=== PATIENT | female | born 1940 | race Caucasian/White ===

== ENCOUNTER 2020-04-11 14:38 | Emergency (ER) | payer MEDICARE ==
[~2020-04-11] VITALS: Ht 165.1 cm; Wt 73.0 kg
--- NOTE | 2020-04-11 15:00 | PHYS DOC ---
Past History Past Medical History: Diabetes, Hypertension Past Surgical History: Tonsillectomy Alcohol Use: None Adult General Chief Complaint Chief Complaint: MECHANICAL FALL HPI HPI Patient is a 79-year-old female presents status post mechanical fall. Patient reports suffering a mechanical fall while walking up her driveway. States she tripped on her shoelace and noticed she was falling down and so, she positioned her body to land in the grass, not the hard paved driveway. Patient subsequently fell towards her right landing on her outstretched right wrist, then hit her left wrist and knees and subsequently hit her nose suffering a small abrasion. Patient reports mild pain in her nose and right wrist only. She did not lose consciousness, no headaches nausea or vomiting since episode, she is ambulatory since this happened without any other concerning motor, sensory or neurologic abnormalities. She is not on any anticoagulants at this time Review of Systems Review of Systems Fourteen body systems of review of systems have been reviewed. See HPI for pertinent positives and negative responses, other jones all other systems are negative, non-pertinent or non-contributorya Allergies Allergies Allergies Coded Allergies Type Severity Reaction Last Updated Verified No Known Drug Allergies 04/11/20 No Physical Exam Physical Exam Constitutional: Pt is oriented to person, place, and time. Pt appears well- developed and well-nourished. HENT: Head: Normocephalic and atraumatic. Mouth/Throat: Oropharynx is clear and moist. No hematomas or lacerations or abrasions to face or scalp OP clear, no blood, no malocclusion, dentition intact Nares clear, no nasal septal hematoma, deviated septum which is chronic per patient, mild soft tissue swelling at bridge of nose without any palpable abnormalities External ears unremarkable, negative tejeda sign Midface stable Eyes: Conjunctivae and EOM are normal. Pupils are equal, round, and reactive to light. Neck: C-spine midline nontender, no step-offs Cardiovascular: Normal rate, regular rhythm and normal heart sounds. Pulmonary/Chest: Effort normal and breath sounds normal. No respiratory distress. No wheezes. CTA bilaterally Abdominal: Soft. Bowel sounds are normal. Pt exhibits no distension. There is no tenderness. Musculoskeletal: No bony tenderness to extremities, no deformities, full ROM extremities Chest wall stable Pelvis stable and non-tender No vertebral TTP and spine without stepoffs Neurological: Pt is alert and oriented to person, place, and time. Moving all extremities willfully, able to wiggle all fingers and toes Alert and oriented x 3 Sensation grossly intact Tenderness to palpation of right scaphoid area. Otherwise median ulnar and radial nerves of right upper extremity intact with cap refill less than 3 seconds, no changes in motor or sensory function versus baseline Skin: Skin is warm and dry. No abrasions, no lacerations Psychiatric: Behavior is appropriate for situation Nursing note and vitals reviewed. Current Patient Data Vital Signs Vital Signs Date Time Temp Pulse Resp B/P (MAP) Pulse Ox O2 Delivery O2 Flow Rate FiO2 04/11/20 14:45 98.3 100 20 156/85 (108) 97 EKG EKG [] Radiology/Procedures Radiology/Procedures [] Heart Score Risk Factors: Risk Factors: DM, Current or recent (<one month) smoker, HTN, HLP, family history of CAD, obesity. Risk Scores: Risk Factors: DM, Current or recent (<one month) smoker, HTN, HLP, family history of CAD, obesity. Course & Med Decision Making Course & Med Decision Making Pertinent Labs and Imaging studies reviewed. (See chart for details) Discussed most likely diagnosis of contusion to right wrist and abrasion to nose. Patient observed in our ER for greater than 90 minutes without any overt changes in mentation. I have no fear for her ability to go home at this time. NEXUS cervical spine negative, I discussed little utility in CT head, I did disclose without this I could not definitively rule out brain bleed but at this time given history and physical examination findings and patient without anticoagulant use and no loss of consciousness or other concerning findings, joint decision to defer Patient was advised and educated on importance of close outpatient follow-up. I advised them to call primary care physician as soon as possible to discuss following up in outpatient setting after ER departure for repeat examination and evaluation. Strict return precautions were discussed at length with good understanding by patient who is able to restate plan and concerning signs or symptoms that should prompt immediate medical attention. All questions and concerns addressed prior to ER departure Dragon Disclaimer Dragon Disclaimer This electronic medical record was generated, in whole or in part, using a voice recognition dictation system. Departure Departure: Impression: Primary Impression: Contusion of right wrist Additional Impression: Nose abrasion Disposition: 01 DC HOME SELF CARE/HOMELESS Condition: STABLE Referrals: ERLINDA PAREDES MD (PCP) Patient Instructions: Abrasions, Contusion Problem Qualifiers INDER JANE DO Apr 11, 2020 15:00
[2020-04-11] MEDS ORDERED: ACETAMINOPHEN 325 MG TABLET PO ONE (15:15)
--- NOTE | 2020-04-11 16:28 | RAD ---
EXAM: NASAL BONES 3+V, WRIST 3V RIGHT 04/11/2020 3:08 PM CLINICAL INDICATION:Fall to nose, fell on outstretched hand COMPARISON:None TECHNIQUE:3 views of the nasal bones, 3 views of the right wrist FINDINGS: Nasal bones: No displaced nasal bone fracture. Paranasal sinuses and mastoid air cells are clear.. Orbits appear intact. Temporomandibular joints are normally aligned. Right wrist: Transverse lucency through the distal radius on oblique view could represent a nondisplaced fracture. Otherwise, no fracture. Alignment is normal. Severe joint space narrowing and subchondral sclerosis at the first CMC joint. Chondrocalcinosis is noted. There are vascular calcifications. IMPRESSION: 1. No acute osseous abnormality of the nasal bones. 2. Possible nondisplaced distal radial fracture. Electronically signed by: Radha Franco MD (04/11/2020 4:25 PM) [id number]
[2020-04-11 16:45] VITALS: BP 142/68
== END 2020-04-11 16:50 | disposition home or self-care (01) ==
LOC: ER 14:38
DX: S60.211A Contusion of right wrist, initial encounter (principal); S00.31XA Abrasion of nose, initial encounter; E11.9 Type 2 diabetes mellitus without complications; I10 Essential (primary) hypertension; W18.09XA Striking against other object with subsequent fall, initial encounter; Y93.01 Activity, walking, marching and hiking; Y92.89 Other specified places as the place of occurrence of the external cause; Y99.8 Other external cause status
CPT/HCPCS: 29125; 70160; 73110; 99284

== ENCOUNTER → 2020-04-13 | Outpatient (CLI) | payer MEDICARE ==
[2020-04-11 16:45] VITALS: BP 142/68
--- NOTE | 2020-04-13 17:24 | RAD ---
Left knee 4 views. HISTORY: Pain 4 views were taken of the left knee. There is mild chondrocalcinosis. There is no fracture or joint effusion or other acute osseous abnormality. IMPRESSION: 1. Mild chondrocalcinosis left knee. 2. No fracture or joint effusion or other acute osseous abnormality. Electronically signed by: Jesus Chavarria MD (04/13/2020 5:21 PM) [id number]
--- NOTE | 2020-04-13 17:26 | RAD ---
Right hand 3 views. HISTORY: Pain right hand 3 views were taken of the right hand. The hand and wrist is in a splint which obscures visualization. There is arthritis at the first metacarpal phalangeal joint with joint space narrowing and spurring. There is extensive vascular calcification. There is mild arthritis at the interphalangeal joint of the thumb. There is are not optimally visualized as they're flexed. An acute fracture is not identified. Soft tissue swelling dorsally. There is mild arthritis at the third metacarpal phalangeal joint with spurring. IMPRESSION: 1. Soft tissue swelling. 2. 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 3. Some limitation in evaluation of the fingers. 4. No definite fracture. Electronically signed by: Jesus Chavarria MD (04/13/2020 5:23 PM) [id number]
== END ==
LOC: RAD 16:41
PROVIDERS: ATTEND Specialist
DX: S60.211A Contusion of right wrist, initial encounter (principal); M19.031 Primary osteoarthritis, right wrist; M11.262 Other chondrocalcinosis, left knee; X58.XXXA Exposure to other specified factors, initial encounter; Y93.89 Activity, other specified; Y92.89 Other specified places as the place of occurrence of the external cause; Y99.8 Other external cause status
CPT/HCPCS: 73130; 73564

== ENCOUNTER → 2020-05-04 | Outpatient (CLI) | payer MEDICARE ==
[2020-04-11 16:45] VITALS: BP 142/68
--- NOTE | 2020-05-04 13:59 | RAD ---
PROCEDURE: XR FOREARM_RIGHT 2 VIEWS STUDY DATE: 05/04/2020 CLINICAL INDICATION / HISTORY: Reason: NON DISPLACED FRACTURE DISTAL RADIUS / Spl. Instructions: / H istory: . TECHNIQUE: Right forearm 2 views. AP and lateral views. COMPARISON: Right wrist x-rays of 04/17/2020 FINDINGS: Right forearm has been placed in a cast. Bones are osteopenic. Alignment is anatomic. The c ast obscures osseous detail at the wrist but no new fracture or displacement is identified. The more proximal right forearm shows no acute osseous abnormality. Soft tissues are unremarkable. IMPRESSION: No acute bony abnormality status post cast placement. Distal right radial fracture is less well seen due to overlap of cast material. Proximal right forearm unremarkable. Electronically signed by: Gloria Bower MD (05/04/2020 1:57 PM) [id number]
== END ==
LOC: DXRAD 10:52
PROVIDERS: ATTEND Specialist
DX: S52.324A Nondisplaced transverse fracture of shaft of right radius, initial encounter for closed fracture (principal); M85.831 Other specified disorders of bone density and structure, right forearm; X58.XXXA Exposure to other specified factors, initial encounter; Y93.89 Activity, other specified; Y92.89 Other specified places as the place of occurrence of the external cause; Y99.8 Other external cause status
CPT/HCPCS: 73090

== ENCOUNTER → 2020-08-06 | Outpatient (CLI) | payer MEDICARE ==
--- NOTE | 2020-08-06 15:38 | RAD ---
US EXTREM UPPER ARTERIAL UNILAT History: Reason: L HAND 2ND FINGER COLD / Spl. Instructions: / History: Comparison: None. COMPARISON: None available TECHNIQUE: Sonographic and Doppler evaluation of the left upper extremity arterial system. FINDINGS: Triphasic or biphasic waveform throughout the left upper extremity. No significant velocity elevation . No stenosis. Moderate atheromatous plaque. IMPRESSION: 1. No arterial stenosis or occlusion within the upper extremity. 2. Moderate atheromatous plaque. Electronically signed by: Nils Lopez DO (08/06/2020 3:36 PM) [id number]
== END ==
LOC: US 10:18
PROVIDERS: ATTEND Specialist
DX: I70.202 Unspecified atherosclerosis of native arteries of extremities, left leg (principal)
CPT/HCPCS: 93931

== ENCOUNTER 2021-05-21 13:01 | Emergency (ER) | payer MEDICARE ==
[~2021-05-21] VITALS: Ht 165.1 cm; Wt 73.0 kg
--- NOTE | 2021-05-21 13:28 | EKG ---
[address] [address] Test Date: 2021-05-21 Test Time: 13:08:57 Pat Name: EBONY TELLEZ Department: Room: Gender: F Signals Officer: DOMI : 1940 Requested By: FELI PORTER Order Number: [id number] Reading MD: Eleazar Morris Measurements Intervals [place] Rate: 96 P: 35 ME: 220 QRS: -51 QRSD: 116 T: 87 QT: 338 QTc: 433 Interpretive Statements SINUS RHYTHM PROLONGED ME INTERVAL ABNORMAL LEFT AXIS DEVIATION R-S TRANSITION ZONE IN V LEADS DISPLACED TO THE LEFT LEFT ANTERIOR FASCICULAR BLOCK LVH WITH REPOLARIZATION ABNORMALITY Electronically Signed On 05-22-2021 15:17:15 [employer] BASTER by Eleazar Morris
--- NOTE | 2021-05-21 13:33 | PHYS DOC ---
Past History Past Medical History: Diabetes, Hypertension Past Surgical History: Tonsillectomy Alcohol Use: None General Adult EDM: Chief Complaint: ALTERED MENTAL STATUS HPI: HPI: 80-year-old female presents with concern for strokelike symptoms. The patient had an episode of upper and lower lip swelling and numbness yesterday but this went away. She made an appoint with her primary physician for Monday. Today, the patient had a period where she had slurred speech and was unable to clearly articulate what she wanted to say. She was talking to a friend of hers and it was obvious to both of them that she was having difficulty. She tells me that this lasted for about 30 minutes. She now has no symptoms of any kind. She denies any change in sensation or strength. She is able to walk without any difficulty. She came in for evaluation out of an abundance of caution. Review of Systems: Review of Systems: Constitutional: Denies fever or chills Eyes: Denies change in visual acuity HENT: Denies nasal congestion or sore throat Respiratory: Denies cough or shortness of breath Cardiovascular: Denies chest pain or edema GI: Denies abdominal pain, nausea, vomiting, bloody stools or diarrhea : Denies dysuria Musculoskeletal: Denies back pain or joint pain Integument: Denies rash Neurologic: Slurred speech. Denies headache, focal weakness or sensory changes Endocrine: Denies polyuria or polydipsia Lymphatic: Denies swollen glands Psychiatric: Denies depression or anxiety Allergies: Allergies: Allergies Coded Allergies Type Severity Reaction Last Updated Verified No Known Drug Allergies 04/11/20 No Physical Exam: PE: Constitutional: Well developed, well nourished, no acute distress, non-toxic appearance. [] HENT: Normocephalic, atraumatic, bilateral external ears normal, oropharynx moist, no oral exudates, nose normal. [] Eyes: PERRLA, EOMI, conjunctiva normal, no discharge. [] Neck: Normal range of motion, no tenderness, supple, no stridor. [] Cardiovascular: Heart rate regular rhythm, no murmur [] Lungs & Thorax: Bilateral breath sounds clear to auscultation [] Abdomen: Bowel sounds normal, soft, no tenderness, no masses, no pulsatile masses. [] Skin: Warm, dry, no erythema, no rash. [] Back: No tenderness, no CVA tenderness. [] Extremities: No tenderness, no cyanosis, no clubbing, ROM intact, no edema. [] Neurologic: Alert and oriented X 3, normal motor function, normal sensory function, no focal deficits noted. [] Psychologic: Affect normal, judgement normal, mood normal. [] Current Patient Data: Labs: Laboratory Tests Test 05/21/21 13:15 Glucose (Fingerstick) 202 mg/dL (70-99) H EKG: EKG: Sinus rhythm, rate 96, leftward axis, no ST elevation or depression. [] Radiology/Procedures: Radiology/Procedures: [] Heart Score: C/O Chest Pain: N/A Risk Factors: Risk Factors: DM, Current or recent (<one month) smoker, HTN, HLP, family history of CAD, obesity. Risk Scores: Score 0 - 3: 2.5% MACE over next 6 weeks - Discharge Home Score 4 - 6: 20.3% MACE over next 6 weeks - Admit for Clinical Observation Score 7 - 10: 72.7% MACE over next 6 weeks - Early Invasive Strategies Course & Med Decision Making: Course & Med Decision Making Pertinent Labs and Imaging studies reviewed. (See chart for details) The patient's EKG is negative for acute findings. Her head CT is negative for acute findings. Her labs are unremarkable. Chest x-ray is unremarkable. Urinalysis is negative for infection. She is negative for COVID and influenza. She appears to be at baseline. This was most likely a TIA. I have encouraged her to continue her appointment scheduled for Monday. If any new symptoms return or develop she is welcome to come back to the emergency room. She is stable for discharge at this time. [] Dragon Disclaimer: Dragon Disclaimer: This electronic medical record was generated, in whole or in part, using a voice recognition dictation system. Departure Departure: Impression: Primary Impression: TIA (transient ischemic attack) Disposition: HOME / SELF CARE / HOMELESS Condition: STABLE Referrals: ERLINDA PAREDES MD (PCP) Patient Instructions: Transient Ischemic Attack, [id number] FELI PORTER DO May 21, 2021 13:33
[2021-05-21 13:55] LABS: BASO % 0 % (0-3); EOS # 0.1 x10^3/uL (0.0-0.7); EOS % 2 % (0-3); HEMOGLOBIN 13.1 g/dL (12.0-15.5); LYMPH % 13 % (24-48); MEAN CORPUSCULAR HEMOGLOBIN 30 pg (25-35); MEAN CORPUSCULAR HGB CONC 33 g/dL (31-37); MEAN CORPUSCULAR VOLUME 90 fL (79-100); MONO # 0.4 x10^3/uL (0.0-1.1); MONO % 5 % (0-9); NEUT # 6.3 x10^3uL (1.8-7.7); NEUT % 80 % (31-73); PLATELET COUNT 179 x10^3/uL (140-400); RED BLOOD COUNT 4.44 x10^6/uL (3.50-5.40); RED CELL DISTRIBUTION WIDTH 14.4 % (11.5-14.5); WHITE BLOOD COUNT 7.8 x10^3/uL (4.0-11.0)
--- NOTE | 2021-05-21 13:59 | RAD ---
EXAM: Chest, single view. HISTORY: Altered mental status. COMPARISON: None. FINDINGS: A frontal view of the chest is obtained. There is no infiltrate, pleural effusion or pneumo thorax. The heart is normal in size. There are a few calcified granulomas. IMPRESSION: No acute pulmonary finding. Electronically signed by: Sophie Flores MD (05/21/2021 1:57 PM) [id number]
--- NOTE | 2021-05-21 14:01 | RAD ---
Exam Date: 05/21/2021 1:[address] HEAD/BRAIN WO Indication: Reason: slurred speech, altered mental status / Spl. Instructions: / History: . TECHNIQUE: Head CT was performed without intravenous contrast. One or more of the following dose re duction techniques were utilized: *Automated exposure control (AEC) *Adjustment of mA and/or kV according to patient size *Use of iterative reconstruction technique *CT scan done according to ALARA, or ALARA/IMAGE GENTLY FINDINGS: The ventricles and sulci are prominent consistent with cerebral volume loss. Patchy ill-defined low attenuation areas in the subcortical and periventricular white matter bilaterally are consistent with microvascular disease. There is no evidence of acute intracranial hemorrhage, extra-axial collecti on, mass effect, midline shift, or acute territorial infarct. No lesion of the skull base or the calv arium is seen. The visualized paranasal sinuses, mastoid air cells and orbits are normal in appearanc e. IMPRESSION: No evidence for acute intracranial abnormality. Volume loss and microvascular disease. Electronically signed by: Kadeem Jacinto MD (05/21/2021 1:59 PM) [facility]ENTERGERALDINE
[2021-05-21 14:02] LABS: CALCIUM 9.3 mg/dL (8.5-10.1); CREATININE 1.1 mg/dL (0.6-1.0); GFR 47.8; POTASSIUM 4.3 mmol/L (3.5-5.1)
[2021-05-21 14:08] LABS: ALBUMIN/GLOBULIN RATIO 1.1 (1.0-1.7); TOTAL BILIRUBIN 0.3 mg/dL (0.2-1.0); TOTAL PROTEIN 7.6 g/dL (6.4-8.2)
[2021-05-21 14:09] LABS: INFLUENZA A PATIENT NEGATIVE (NEGATIVE); INFLUENZA B PATIENT NEGATIVE (NEGATIVE)
[2021-05-21 16:02] LABS: BILIRUBIN,URINE NEG (NEG); CLARITY,URINE CLEAR; COLOR,URINE YELLOW; GLUCOSE,URINE 100 mg/dL (NEG)
[2021-05-21 16:03] LABS: BACTERIA,URINE 0 /HPF (0-FEW); NITRITE,URINE NEG (NEG); RBC,URINE RARE /HPF (0-2); SQUAMOUS EPITHELIAL CELL,UR MANY /LPF; UROBILINOGEN,URINE 0.2 mg/dL (0.2 mg/dL); WBC,URINE 0 /HPF (0-4)
[2021-05-21 16:15] VITALS: BP 149/81
== END 2021-05-21 16:20 | disposition home or self-care (01) ==
LOC: ER 13:01
DX: G45.9 Transient cerebral ischemic attack, unspecified (principal); E11.9 Type 2 diabetes mellitus without complications; I10 Essential (primary) hypertension; Z20.822 Contact with and (suspected) exposure to COVID-19
CPT/HCPCS: 36415; 70450; 71045; 80053; 81001; 82947; 84484; 85025; 87428; 93005; 99285

== ENCOUNTER → 2021-05-28 | Outpatient (CLI) | payer MEDICARE ==
[2021-05-21 16:15] VITALS: BP 149/81
--- NOTE | 2021-05-28 15:54 | RAD ---
Exam Date: 05/28/2021 12:42 PM US DPLX CAROTID BILAT Indication: Reason: TIA, HTN / Spl. Instructions: / History: . BILATERAL CAROTID DOPPLER WITH SPECTRAL DOPPLER ANALYSIS: TECHNIQUE: Real-time ultrasound, color Doppler and spectral waveform analysis was performed of the b ilateral cervical portions of the carotid arteries and vertebral arteries. FINDINGS: RIGHT: The right common and internal carotid arteries demonstrated mild atherosclerotic plaque. No arterial jet phenomenon was seen on color-flow or spectral waveform analysis. The peak systolic daniella ocity in the right internal carotid artery measured 83 cm/sec and the ICA/CCA systolic velocity ratio measured 1.0, which are within normal limits. The external carotid artery shows a normal resistive arterial waveform. LEFT: The left common and internal carotid arteries demonstrated mild atherosclerotic plaque. No ar terial jet phenomenon was seen on color-flow or spectral waveform analysis. The peak systolic veloci ty in the left internal carotid artery measured 90 cm/sec and the ICA/CCA systolic velocity ratio warren sured 0.9, which are within normal limits. The external carotid artery shows a normal resistive chinedu rial waveform. Antegrade vertebral artery flow was noted on the right. Left vertebral artery was not identified. IMPRESSION: Mild less than 50% diameter stenosis of both internal carotid arteries which is not hemodynamically s ignificant carotid artery stenosis. Antegrade flow in the right vertebral artery. Left vertebral artery was not identified which could b e related to technical issues versus stenosis or occlusion. If clinically indicated, consider furthe r workup with CT or MR angiogram. Electronically signed by: Kadeem Jacinto MD (05/28/2021 3:51 PM) [id number]
== END ==
LOC: US 12:40
PROVIDERS: ATTEND Specialist
DX: I65.23 Occlusion and stenosis of bilateral carotid arteries (principal)
CPT/HCPCS: 93880